=== PATIENT | female | born 1990 | race Caucasian/White ===

== ENCOUNTER 2016-10-23 14:23 | Emergency (ER) ==
[2016-10-23 14:28] VITALS: BP 113/77; TEMP 98.8; BMI 30.2
[2016-10-23] MEDS ORDERED: BOOSTRIX IM ONE (14:37)
--- NOTE | 2016-10-23 14:48 | ED.PDOC ---
General ED Provider: Dr. CELESTINE ANDERSON JR Chief Complaint: Hand Laceration Stated Complaint: WASHING DISHES AND CUT RIGHT LATERAL HAND ON A BROKEN GLASS. [ End ]98.8 79 20 98% 113/77 Time Seen by Physician: 14:36 Mode of Arrival: Walk-In Information Source: Patient Exam Limitations: No limitations Nursing and Triage Documentation Reviewed and Agree: No Review of Systems - Review Of Systems Constitutional: Reports: No symptoms Eyes: Reports: No symptoms Ears, Nose, Mouth, Throat: Reports: No symptoms Respiratory: Reports: No symptoms Cardiac: Reports: No symptoms GI: Reports: No symptoms : Reports: No symptoms Musculoskeletal: Reports: No symptoms Skin: Reports: Lesions Neurological: Reports: No symptoms Endocrine: Reports: No symptoms Hematologic/Lymphatic: Reports: No symptoms All Other Systems: Other Past Medical History - Past Medical History Previously Healthy: Yes Endocrine: Reports: None Cardiovascular: Reports: None Respiratory: Reports: None Hematological: Reports: None Gastrointestinal: Reports: None Genitourinary: Reports: None Neuro/Psych: Reports: None Musculoskeletal: Reports: None Cancer: Reports: None Last Menstrual Period: 10/15/16 - Surgical History General Surgical History: Reports: Cholecystectomy - Family History Family History: Reports: None - Social History Smoking Status: Current every day smoker Hx Substance Use: No Alcohol Screening: None - Immunizations Tetanus Shot up to Date: No Physical Exam - Physical Exam Appearance: Well-appearing Psychiatric: Affect appropriate Procedures - Laceration/Wound Repair No standard instances Wound Description: Other Wound Length (cm): 0.5 Wound Width: 0.r Wound Explored: Clean Wound Irrigated: Yes Wound Prep: Hibiclens Wound Repaired With: Dermabond Critical Care Note - Critical Care Note Total Time (mins): 0 Course - Course Vital Signs: Temp Pulse Resp BP Pulse Ox 10/23/16 14:23 98.8 F 79 20 113/77 98 Departure - Departure Time of Disposition: 14:48 Disposition: HOME SELF-CARE Discharge Problem: Laceration of hand Instructions: Skin Adhesive Care (ED) Condition: Good Pt referred to PMD for follow-up: Yes Additional Instructions: return or to PMD if red swollen tender draining signs of infection avoid trauma to skin adhesive Allergies/Adverse Reactions: Allergies No Known Allergies Allergy (Verified 10/23/16 14:31) Home Medications: Ambulatory Orders Etonogestrel [Nexplanon] 68 mg SQ DIRECTED 07/29/15
== END 2016-10-23 14:53 | disposition home or self-care (01) ==
LOC: ED 14:23
DX: S61.411A Laceration without foreign body of right hand, initial encounter (principal); W25.XXXA Contact with sharp glass, initial encounter; Y93.G1 Activity, food preparation and clean up
CPT/HCPCS: 90471; 99283

== ENCOUNTER 2016-12-01 16:37 | Emergency (ER) ==
[2016-12-01 16:41] VITALS: BP 139/99; TEMP 98.8; BMI 31.9
--- NOTE | 2016-12-01 17:13 | ED.PDOC ---
General ED Provider: Dr. CELESTINE ANDERSON JR Chief Complaint: Toe Pain/Injury Stated Complaint: patient states she was trying to move a desk and it landed on left great toe. [ End ]1 hour. gallbladder 10/2013. patient states she was trying to move a desk and it fell on proximal area of left great toe. [ End ] Time Seen by Physician: 17:11 Mode of Arrival: Walk-In Information Source: Patient Exam Limitations: No limitations Primary Care Provider: BRENT ALVES Nursing and Triage Documentation Reviewed and Agree: No Review of Systems - Review Of Systems Constitutional: Reports: No symptoms Eyes: Reports: No symptoms Ears, Nose, Mouth, Throat: Reports: No symptoms Respiratory: Reports: No symptoms Cardiac: Reports: No symptoms GI: Reports: No symptoms : Reports: No symptoms Musculoskeletal: Reports: Joint pain (left first mcp metacarpal slightly tender prox phalanx very tender) Skin: Reports: Bruising Neurological: Reports: No symptoms Endocrine: Reports: No symptoms Hematologic/Lymphatic: Reports: No symptoms All Other Systems: Other Past Medical History - Past Medical History Previously Healthy: Yes Endocrine: Reports: None Cardiovascular: Reports: None Respiratory: Reports: None Hematological: Reports: None Gastrointestinal: Reports: None Genitourinary: Reports: None Neuro/Psych: Reports: None Musculoskeletal: Reports: None Cancer: Reports: None Last Menstrual Period: 2 weeks ago - Surgical History General Surgical History: Reports: Cholecystectomy - Family History Family History: Reports: None - Social History Smoking Status: Current every day smoker Hx Substance Use: No Alcohol Screening: None Physical Exam - Physical Exam Appearance: Well-appearing, Thin Pain Distress: Moderate Neck: Supple Respiratory: Airway patent Musculoskeletal: Normal strength, Edema (left great toe mild) Critical Care Note - Critical Care Note Total Time (mins): 0 Course - Course Orders, Labs, Meds: Orders Category Date Time Status TOE(S), LEFT MIN 2V Stat RADS 12/01/16 17:13 Taken Vital Signs: Temp Pulse Resp BP Pulse Ox 12/01/16 16:39 98.8 F 93 H 14 139/99 H 98 Departure - Departure Time of Disposition: 17:47 Disposition: HOME SELF-CARE Discharge Problem: Injury of toe Contusion Qualifiers: Encounter type: initial encounter Contusion area: toe Toe: great toe Damage to nail status: without damage Laterality: left Qualifier Code: (S90.112A) Contusion of left great toe without damage to nail, initial encounter Instructions: Foot Contusion (ED) Condition: Good Pt referred to PMD for follow-up: Yes Additional Instructions: ice 20 minutes three times a day elevate foot for two hours twice a day Tylenol for pain not controlled with ice may use [place] if needed radiologist will read films before noon tomorrow recheck PMD one week if still painful sooner if fracture found Allergies/Adverse Reactions: Allergies No Known Allergies Allergy (Verified 12/01/16 16:41) Home Medications: Ambulatory Orders Etonogestrel [Nexplanon] 68 mg SQ DIRECTED 07/29/15
--- NOTE | 2016-12-02 07:17 | DI ---
EXAM: Radiographs, left first toe HISTORY: Left first toe pain. COMPARISON: None available. TECHNIQUE: Three views. FINDINGS: Bone mineralization is normal. There is no fracture or dislocation. The joint spaces ar e maintained. No focal soft tissue abnormality is seen. IMPRESSION: No fracture or dislocation.
== END 2016-12-01 18:31 | disposition home or self-care (01) ==
LOC: ED 16:37
DX: S90.112A Contusion of left great toe without damage to nail, initial encounter (principal); W20.8XXA Other cause of strike by thrown, projected or falling object, initial encounter; F17.210 Nicotine dependence, cigarettes, uncomplicated
CPT/HCPCS: 99283

== ENCOUNTER 2016-12-07 08:39 | Outpatient (CLI) ==
[2016-12-07 08:56] LABS: BASOPHILS % (AUTO) 0.7 % (0.0-3.0); EOSINOPHILS # (AUTO) 0.2 K/ul (0.0-0.7); EOSINOPHILS % (AUTO) 2.8 % (0.0-7.0); HEMATOCRIT 41.6 % (37.0-47.0); IMMATURE GRANULOCYTE % (AUTO) 0.5 % (0.0-5.0); LYMPHOCYTES # (AUTO) 1.7 K/uL (0.60-3.4); LYMPHOCYTES % (AUTO) 30.2 (10.0-50.0); MEAN CORPUSCULAR HEMOGLOBIN 29.2 pg (27.0-31.0); MEAN CORPUSCULAR HGB CONC 33.7 (31.8-35.4); MEAN CORPUSCULAR VOLUME 86.8 fl (81.0-99.0); MONOCYTES # (AUTO) 0.3 K/uL (0.4-2.0); NEUTROPHILS # (AUTO) 3.4 K/ul (2.0-6.9); NEUTROPHILS % (AUTO) 59.8; PLATELET COUNT 258 10^3/uL (140-440); RED BLOOD COUNT 4.79 10^6/ul (4.20-5.40); WHITE BLOOD COUNT 5.66 K/ul (4.6-10.2)
[2016-12-07 09:42] LABS: ALBUMIN 3.9 g/dL (3.4-5.0); ALBUMIN/GLOBULIN RATIO 1.18; ANION GAP 12.8; BILIRUBIN,TOTAL 0.6 mg/dL (0.00-1.20); BUN/CREATININE RATIO 8.33; CALCIUM 9.4 mg/dL (8.2-10.2); CHOL/HDL RATIO 3.7 (4.5-5.5); CREATININE 0.72 mg/dL (0.60-1.30); POTASSIUM 3.8 mmol/L (3.5-5.10); TOTAL PROTEIN 7.2 g/dL (6.4-8.2)
== END 2016-12-07 08:40 | disposition home or self-care (01) ==
LOC: LAB 08:39
PROVIDERS: ATTEND Nurse Practitioner Family
DX: F41.9 Anxiety disorder, unspecified (principal); E66.9 Obesity, unspecified; F32.9 Major depressive disorder, single episode, unspecified
CPT/HCPCS: 36415; 80053; 80061; 84439; 84443; 85025

== ENCOUNTER 2017-11-17 14:46 | Outpatient (CLI) | END 2017-11-17 14:47 | disposition home or self-care (01) | LOC: RHC-LAB 14:46 | PROVIDERS: ATTEND Nurse Practitioner Family | DX: R05 Cough (principal) | CPT/HCPCS: 87804 ==

== ENCOUNTER 2018-03-12 09:52 | Outpatient (CLI) | END 2018-03-12 09:53 | disposition home or self-care (01) | LOC: LAB 09:52 | PROVIDERS: ATTEND Nurse Practitioner Family | DX: F41.8 Other specified anxiety disorders (principal) | CPT/HCPCS: 36415; 80053; 80061; 84443; 85025 ==

== ENCOUNTER 2018-04-09 08:00 | Outpatient (RCR) ==
--- NOTE | 2018-03-26 10:54 | RS.OPPTEV2 ---
Date of Note: 03/26/18 Visit #: 1 Date of Evaluation: 03/26/18 Payer Source: Insurance Treatment Diagnosis: Left shoulder pain History of Condition/Mechanism of Injury:: Patient reports left shoulder pain began approximately two months ago. States she has not had an injury to the shoulder. States she was standing at a table at work and just felt sharp pain in the shoulder. Current Subjective/complaints:: [place] reports left shoulder pain. States pain is mainly with raising the left arm, especially up to or beyond shoulder height. 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 States her shoulder pain increases the more she tries to use it. She is unable to sleep on the left shoulder. She denies tingling or numbness in the left UE. Does report some discomfort into the left side of the neck. Reports she has difficulty fixing her hair or any other activity that requires her to hold her arm up at or beyond shoulder height. States she can no longer braid her hair. When pain is really bad, it hurts to turn the steering wheel when driving. Reports having popping at times in the shoulder. States when she gets a major pop, it feels like lava goes through the shoulder joint. She has had no Xrays or MRI at this time. She has also not received an injection. Treatment Side (optional): Left Medical History Surgical History: Cholecystectomy Smoking Status: Current every day smoker Hx Home Medications: Paroxetine Patient's Goals: Her goal is to get relief of left shoulder pain. Pain Assessment - Pain Description Pain Location: left shoulder joint Current Pain Intensity: 1/10 Worst Pain Intensity: 9/10 Functional Outcome Measure UE Functional Index: 66 (66/80= 17.5% impaired) - G Codes & Severity Modifier G Codes & Modifier: NA Source of G Code score: NA Observation - Observation Posture: Forward Head, Rounded Shoulders Handedness: Right Shoulder ROM: Right WFL's Shoulder Muscle Strength: Right WFL's - Left Shoulder ROM Left Shoulder Flexion: 95 (degrees AROM) Left Shoulder Abduction: 78 (degrees AROM) Left Shoulder Internal Rotation: 70 (degrees AROM) Left Shoulder External Rotation: 75 (degrees AROM) Left Shoulder ROM Limitations: Pain Comments: passive left shoulder ROM: flexion 105 degrees, abduction 100 degrees , ER and IR WFL's. All directions limited by pain. - Left Shoulder Strength Left Shoulder Flexion: 4 Good Left Shoulder Extension: 4+ Good + Left Shoulder Abduction: 4 Good Left Shoulder Adduction: 4+ Good + Left Shoulder External Rotation: 4 Good Left Shoulder Internal Rotation: 3+ Fair+ Comments: Pain with resisted left shoulder flexion, abduction, and IR - Special Tests Shoulder Empty Can (Supraspinatus) Test: Positive Left Shoulder Speed's Sign Test: Negative Left Shoulder Drop Arm Test: Negative Left Shoulder Lovell-Magdaleno Impingement Test: Positive Left Comments: Lift off test for Subscapularis-- Positive left shoulder Rn Orthopedic Strength Left Hand Rn Orthopedic Strength: 20 lbs. Right Hand Rn Orthopedic Strength: 68 lbs. Dynamometer Testing Position: 2nd Position Palpation Comments:: Patient reports tenderness with palpation over the insertion site of the supraspinatus, infraspinatus, and teres minor tendons. Reports no tenderness during palpation over the anterior aspect of the GH joint, including the long head of the biceps tendon. Sensation - Sensation Right Upper Extremity: Intact/Normal Left Upper Extremity: Intact/Normal - Treatment Modality: Ultrasound Parameters/Method Applied: 1.4 w/cm2 continuous X 9 mins over the left GH joint , with focus on the lateral and posterior aspect of the joint. Patient Position: Sitting Interventions - Exercise/Activities/Manual Therapy Exercises/Activities: Patient instructed in pendulum ex's, RTC series, and scapular retraction. Reinforced to perform RTC series in the pendulum position and only in a pain-free range. Also instructed to ice the left shoulder for pain management and especially after work to decrease inflammation. Manual Therapy: na HOME EXERCISE PROGRAM: pendulum ex's, RTC series, and scapular retraction. - Charges Timed Code Treatment Minutes: 9 mins Total Treatment Time: 48 mins Procedures billed for this date of service:: TONY V[place], US EVALUATION COMPLEXITY LEVEL EVALUATION COMPLEXITY LEVEL: HISTORY: Low, EXAM OF BODY SYSTEMS: Low, CLINICAL PRESENTATION: Low, CLINICAL DECISION MAKING: Low Assessment Assessment: Patient presents to therapy with a diagnosis of left shoulder tendonitis. She presents with left shoulder passive and active ROM limited by pain. She exhibits positive Impingement, Empty Can, and Lift off test. She exhibits tendonitis of supraspinatus, infraspinatus, subscapularis, and probable subacromial bursitis. She shows potential to benefit from modalities to reduce inflammation and exercises to regain functional, pain-free left shoulder ROM. Patient Education: Education of diagnosis, Body/Joint mechanics, Home Exercise Program, Home Safety, Activity Modification, Education of Plan of Care Rehab Potential: Good Short Term Goals Goal #1: Pt independent and compliant in HEP. Goal to be met by: 04/05/18 Goal #2: Left shoulder PROM WFL's with minimal pain. Goal to be met by: 04/09/18 Goal #3: Tenderness at left shoulder joint decreased to minimal. Goal to be met by: 04/09/18 Long-Term Goals Goal #1: Pt knows HEP and to continue ex's to maintain functional level at D/C. Goal to be met by: 04/30/18 Goal #2: Score on UE function index improved to 76/80.. Goal to be met by: 04/30/18 Goal #3: Pt to use LUE for daily work and home activities without pain. Goal to be met by: 04/30/18 Goal #4: Pt to demonstrate good postural awareness. Goal to be met by: 04/30/18 Plan - Treatment to be Provided Procedures: Therapeutic Exercises, Therapeutic Activity, Manual Therapy, Patient Education Modalities: Electrical Stimulation, Ultrasound/Phonophoresis, Class IV Laser, Cryotherapy, Hot Packs - Treatment Plan Frequency: 3 X week Duration: 3 weeks ORDER # VISITS AND/OR THROUGH DATE: 04/30/18 - Treatment Code (1) Shoulder pain Code(s): M25.519 - PAIN IN UNSPECIFIED SHOULDER Qualifiers: Chronicity: acute Laterality: left Qualified Code(s): M25.512 - Pain in left shoulder (2) Shoulder stiffness Qualifiers: Laterality: left Qualified Code(s): M25.612 - Stiffness of left shoulder, not elsewhere classified (3) Shoulder tendonitis Qualifiers: Laterality: left Qualified Code(s): M75.82 - Other shoulder lesions, left shoulder
--- NOTE | 2018-03-28 09:07 | RS.OPPTDN ---
Subjective Date of Note: 03/28/18 Visit #: 2 Date of Evaluation: 03/26/18 Payer Source: Insurance Treatment Diagnosis: Left shoulder pain Current Subjective/complaints:: Reports the L shoulder is hurting at rest this morning. Pain Assessment - Pain Description Pain Location: L shoulder Pain Description: Dull, Aching Current Pain Intensity: 4/10 - Treatment Modality: Ultrasound Parameters/Method Applied: 10 mins. @ 1.5 w/cm2 ,continuous mode to L shoulder. Patient Position: Sitting - Heat/Cryotherapy Treatment: Hot Pack (20 mins. prior to US) Interventions - Exercise/Activities/Manual Therapy Exercises/Activities: Exercise attempted initially in supine ,but poor tolerance due to pain .Patient does pendulum exercises and RTC series in short ROM. Total minutes of Exercise: 10 Manual Therapy: na Total minutes of Manual Therapy: 0 HOME EXERCISE PROGRAM: pendulum ex's, RTC series, and scapular retraction. - Charges Timed Code Treatment Minutes: 20 Total Treatment Time: 40 Procedures billed for this date of service:: hp,US,ex 1 Assessment: Patient has increased sharp pain with attempting active motion ,but has fair tolerance to pendulum exercises today.She c/o numbness and tingling into the L UE while doing pendulum.She understands to do her exercises in a pain free ROM,and to ice after work or activities that elevate her pain.She is attentive to recommendations. Patient Education: Body/Joint mechanics, Home Exercise Program, Activity Modification, Education of Plan of Care Short Term Goals Goal #1: Pt independent and compliant in HEP. Goal to be met by: 04/05/18 Progress towards Goal:: Progressing Goal #2: Left shoulder PROM WFL's with minimal pain. Goal to be met by: 04/09/18 Goal #3: Tenderness at left shoulder joint decreased to minimal. Goal to be met by: 04/09/18 Dining Services Manager Goals Goal #1: Pt knows HEP and to continue ex's to maintain functional level at D/C. Goal to be met by: 04/30/18 Goal #2: Score on UE function index improved to 76/80.. Goal to be met by: 04/30/18 Goal #3: Pt to use LUE for daily work and home activities without pain. Goal to be met by: 04/30/18 Goal #4: Pt to demonstrate good postural awareness. Goal to be met by: 04/30/18 Plan PLAN OF CARE EXPIRES ON:: 04/30/18 ORDER # VISITS AND/OR THROUGH DATE: 04/30/18 PLAN: Continue PT to reduce/eliminate L shoulder pain , then increase her ROM to safely do ADL's. Comments:: We discussed utilizing manual therapy ,possibly next session to help reduce her pain.
--- NOTE | 2018-03-30 09:20 | RS.OPPTDN ---
Subjective Date of Note: 03/30/18 Visit #: 3 Date of Evaluation: 03/26/18 Payer Source: Insurance Treatment Diagnosis: Left shoulder pain Current Subjective/complaints:: Partient reports thge L shoulder "pops" alot at work,also feels lke it "catches " at times. Pain Assessment - Pain Description Pain Location: L shoulder Pain Description: Sharp, Dull, Aching Current Pain Intensity: 2 - Treatment Modality: Ultrasound Parameters/Method Applied: 10 mins. @ 1.5 w/cm2 ,continuous mode to L shoulder. - Heat/Cryotherapy Treatment: Hot Pack (20 mins. prior to US) Interventions - Exercise/Activities/Manual Therapy Exercises/Activities: HEP review only today while receiving manual therapy. Total minutes of Exercise: 0 Manual Therapy: 20 mins. manual therapy to L shoulder and upper traps muscle belly. Total minutes of Manual Therapy: 20 HOME EXERCISE PROGRAM: pendulum ex's, RTC series, and scapular retraction. - Charges Timed Code Treatment Minutes: 30 Total Treatment Time: 50 Procedures billed for this date of service:: hp,US,manual therapy Assessment: Patient reports feeling looser after manual therapy.She is hypersensitive to the RTC tendons insertion site,but less tender in the upper traps today.She undersatnds to continue the HEP in pain free ROM. Patient Education: Education of diagnosis, Body/Joint mechanics, Home Exercise Program, Home Safety, Activity Modification, Education of Plan of Care Patient demonstrates compliance with HEP?: Yes Short Term Goals Goal #1: Pt independent and compliant in HEP. Goal to be met by: 04/05/18 Progress towards Goal:: Progressing Goal #2: Left shoulder PROM WFL's with minimal pain. Goal to be met by: 04/09/18 (N/A today,focused on pain control) Goal #3: Tenderness at left shoulder joint decreased to minimal. Goal to be met by: 04/09/18 Progress towards Goal:: Progressing Usp Goals Goal #1: Pt knows HEP and to continue ex's to maintain functional level at D/C. Goal to be met by: 04/30/18 Progress towards goal: Progressing Goal #2: Score on UE function index improved to 76/80.. Goal to be met by: 04/30/18 Goal #3: Pt to use LUE for daily work and home activities without pain. Goal to be met by: 04/30/18 Goal #4: Pt to demonstrate good postural awareness. Goal to be met by: 04/30/18 Plan PLAN OF CARE EXPIRES ON:: 04/30/18 ORDER # VISITS AND/OR THROUGH DATE: 04/30/18 PLAN: Continue PT to reduce /eliminate L shoulder pain ,increase ROM.
--- NOTE | 2018-04-02 09:21 | RS.OPPTDN ---
Subjective Date of Note: 04/02/18 Visit #: 4 Date of Evaluation: 03/26/18 Payer Source: Insurance Treatment Diagnosis: Left shoulder pain Current Subjective/complaints:: Patioent reports the L shoulder feels better today. Pain Assessment - Pain Description Pain Location: L shoulder Pain Description: Dull, Aching Current Pain Intensity: 1/10 Other Comments regarding Pain:: 310 after exercises today - Heat/Cryotherapy Treatment: Hot Pack (20 mins. prior to exercises) Interventions - Exercise/Activities/Manual Therapy Exercises/Activities: 20 mins. supine exercises ,3/10 wand exerciss for chest press,overhead flexion ,isometrics for IR,ER,abduction.Scapular protraction / retraction x 15 each. Ended with gentle passive shoulder flexion,scaption ,IR and ER. Total minutes of Exercise: 20 Manual Therapy: 20 mins. manual therapy to L shoulder and upper traps muscle belly. Total minutes of Manual Therapy: 20 HOME EXERCISE PROGRAM: pendulum ex's, RTC series, and scapular retraction. - Charges Timed Code Treatment Minutes: 40 Total Treatment Time: 60 Procedures billed for this date of service:: hp,ex ,manual Assessment: Patient reports the L shoulder pain duration is lessening ,still varies with the amount of activities at work ,or what position the L UE is placed to do certain tasks.She reports maintaining certain positions ,such as trying to braid her hair are still difficult. Patient Education: Education of diagnosis, Body/Joint mechanics, Home Exercise Program, Home Safety, Activity Modification, Education of Plan of Care Patient demonstrates compliance with HEP?: Yes Short Term Goals Goal #1: Pt independent and compliant in HEP. Goal to be met by: 04/05/18 Progress towards Goal:: Progressing Goal #2: Left shoulder PROM WFL's with minimal pain. Goal to be met by: 04/09/18 (N/A today,focused on pain control) Progress towards Goal:: Progressing Goal #3: Tenderness at left shoulder joint decreased to minimal. Goal to be met by: 04/09/18 Progress towards Goal:: Progressing Transition Rn Goals Goal #1: Pt knows HEP and to continue ex's to maintain functional level at D/C. Goal to be met by: 04/30/18 Progress towards goal: Progressing Goal #2: Score on UE function index improved to 76/80.. Goal to be met by: 04/30/18 Goal #3: Pt to use LUE for daily work and home activities without pain. Goal to be met by: 04/30/18 Goal #4: Pt to demonstrate good postural awareness. Goal to be met by: 04/30/18 Progress towards goal: Progressing Plan PLAN OF CARE EXPIRES ON:: 04/30/18 ORDER # VISITS AND/OR THROUGH DATE: 04/30/18 PLAN: Continue PT to eliminate L shoulder pain ,increase motion .
--- NOTE | 2018-04-04 08:11 | RS.CXNS ---
Date of scheduled appointment: 04/04/18 Type: Cancel Reason for Cancel/NS: Unknown ,but patient did leave a message stating she cannot keep appt.Next appt. is Monday,04-06-18.
--- NOTE | 2018-04-06 08:57 | RS.OPPTDN ---
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 Pain Assessment - Pain Description Pain Location: L shoulder Pain Description: Dull, Aching Current Pain Intensity: 6 - Treatment Modality: Ultrasound Parameters/Method Applied: 8 mins. @ 1.0 w/cm2 to L shoulder,pulsed mode. Patient Position: Sitting - Heat/Cryotherapy Treatment: Hot Pack (20 mins.heat prior to US,10 mins. cold after), Cryotherapy Interventions - Exercise/Activities/Manual Therapy Exercises/Activities: No exercise due to tenderness to palpate ,abbrevaited US session also due to pain. Total minutes of Exercise: 0 Manual Therapy: N/A Total minutes of Manual Therapy: 0 HOME EXERCISE PROGRAM: pendulum ex's, RTC series, and scapular retraction. - Charges Timed Code Treatment Minutes: 8 Total Treatment Time: 38 Procedures billed for this date of service:: hp,US,cp Assessment: Abbreviated session today,is very tender to palpate today ,poor tolerance to the US ,even in pulsed mode.She is motivated to improve ,uses heat and cold at home for pain control.Her work tasks vary,andthe repetitive use of the L shoulder last night has irritated the L shoulder today.She has good awareness of her posture ,is compliant to HEP. Patient Education: Body/Joint mechanics, Activity Modification, Education of Plan of Care Patient demonstrates compliance with HEP?: Yes Short Term Goals Goal #1: Pt independent and compliant in HEP. Goal to be met by: 04/05/18 Progress towards Goal:: Progressing Goal #2: Left shoulder PROM WFL's with minimal pain. Goal to be met by: 04/09/18 (elevated pain today) Progress towards Goal:: Regressing Goal #3: Tenderness at left shoulder joint decreased to minimal. Goal to be met by: 04/09/18 Progress towards Goal:: Regressing Comments:: Poor tolerance to US or palpation today. Environmental Management Specialist Goals Goal #1: Pt knows HEP and to continue ex's to maintain functional level at D/C. Goal to be met by: 04/30/18 Progress towards goal: Progressing Goal #2: Score on UE function index improved to 76/80.. Goal to be met by: 04/30/18 Goal #3: Pt to use LUE for daily work and home activities without pain. Goal to be met by: 04/30/18 Goal #4: Pt to demonstrate good postural awareness. Goal to be met by: 04/30/18 Progress towards goal: Met Plan PLAN OF CARE EXPIRES ON:: 04/06/18 ORDER # VISITS AND/OR THROUGH DATE: 04/30/18 PLAN: Continue PT to reduce/eliminate L shoulder pain.
--- NOTE | 2018-04-09 09:02 | RS.OPPTDN ---
Subjective Date of Note: 04/09/18 Visit #: 6 Date of Evaluation: 03/26/18 Payer Source: Insurance Treatment Diagnosis: Left shoulder pain Current Subjective/complaints:: Reports her work over the weekend did not involve using the L UE as much ,her pain and tenderness is less today. Pain Assessment - Pain Description Pain Location: L shoulder Pain Description: Dull, Aching Current Pain Intensity: 1 Other Comments regarding Pain:: 3/10 after US and exercises - Treatment Modality: Ultrasound Parameters/Method Applied: 10 mins. @ 1.0 w/cm2,pulsed mode ,50% initially , reduced to 20% ,then 10% due to pain. Patient Position: Sitting - Heat/Cryotherapy Treatment: Hot Pack (20 mins. prior to US) Interventions - Exercise/Activities/Manual Therapy Exercises/Activities: 10 mins. yellow t-band exercises ,3/10 for scapular retractionn ,then 3/10 biceps curls. Total minutes of Exercise: 10 Manual Therapy: N/A Total minutes of Manual Therapy: 0 HOME EXERCISE PROGRAM: pendulum ex's, RTC series, and scapular retraction. - Charges Timed Code Treatment Minutes: 20 Total Treatment Time: 40 Procedures billed for this date of service:: hp,US,ex 1 Assessment: Patient tender to palpate ,alng with pain from US along the biceps tendon area today.She plans to use ice at home for pain control.he is attentive and motivated to improve.We discussed the POC for next session ,plan to use more cold,as opposed to the US ,as it irritated the L shoulder today. Patient Education: Education of diagnosis, Body/Joint mechanics, Home Exercise Program, Home Safety, Activity Modification, Education of Plan of Care Patient demonstrates compliance with HEP?: Yes Short Term Goals Goal #1: Pt independent and compliant in HEP. Goal to be met by: 04/05/18 Progress towards Goal:: Partially Met Goal #2: Left shoulder PROM WFL's with minimal pain. Goal to be met by: 04/09/18 Progress towards Goal:: No Change Goal #3: Tenderness at left shoulder joint decreased to minimal. Goal to be met by: 04/09/18 Progress towards Goal:: No Change Longterm Goals Goal #1: Pt knows HEP and to continue ex's to maintain functional level at D/C. Goal to be met by: 04/30/18 Progress towards goal: Progressing Goal #2: Score on UE function index improved to 76/80.. Goal to be met by: 04/30/18 Goal #3: Pt to use LUE for daily work and home activities without pain. Goal to be met by: 04/30/18 Progress towards goal: Progressing Goal #4: Pt to demonstrate good postural awareness. Goal to be met by: 04/30/18 Progress towards goal: Met Plan PLAN OF CARE EXPIRES ON:: 04/30/18 ORDER # VISITS AND/OR THROUGH DATE: 04/30/18 PLAN: Continue PT to eliminate L shoulder pain ,return to PLOF.
== END 2018-04-10 23:59 ==
PROVIDERS: ATTEND Nurse Practitioner Family
DX: M75.82 Other shoulder lesions, left shoulder (principal); M25.512 Pain in left shoulder; M25.612 Stiffness of left shoulder, not elsewhere classified

== ENCOUNTER 2018-04-13 08:00 | Outpatient (RCR) ==
--- NOTE | 2018-04-12 09:09 | RS.OPPTDN ---
Subjective Date of Note: 04/12/18 Visit #: 7 Date of Evaluation: 03/26/18 Payer Source: Insurance Treatment Diagnosis: Left shoulder pain Current Subjective/complaints:: Patient reprts tightness today in the L shopulder ,but les intense pain ,described as a dull ache. Pain Assessment - Pain Description Pain Location: L shoulder Pain Description: Dull, Aching Current Pain Intensity: 0 at rest Other Comments regarding Pain:: 09/20 after exercises today - Heat/Cryotherapy Treatment: Hot Pack (20 mins. prior to exercises) Interventions - Exercise/Activities/Manual Therapy Exercises/Activities: 20 mins. ,beginning in supine with 3/15 reps.each chest press ,then overhead flexion ,1.5 dumbbell in L hand of same motions.Scaption x 15 reps.AAROM for internal rotation /external rotation.HEP review.Standing motion of reaching to back of her head ,then behind her back to assess pain. Total minutes of Exercise: 20 Manual Therapy: N/A HOME EXERCISE PROGRAM: pendulum ex's, RTC series, and scapular retraction. - Charges Timed Code Treatment Minutes: 20 Total Treatment Time: 40 Procedures billed for this date of service:: hp,ex 1 Assessment: Patient reports more tightness today as oppposed to pain ,but she does have one brief moment of sharp pain with passive external rotation when the UE is abducted to approx 80 degrees.She reports fatigue and dull ache in the anterior deltoid area after exercises. Patient Education: Education of diagnosis, Body/Joint mechanics, Home Exercise Program, Home Safety, Activity Modification, Education of Plan of Care Patient demonstrates compliance with HEP?: Yes Short Term Goals Goal #1: Pt independent and compliant in HEP. Goal to be met by: 04/05/18 Progress towards Goal:: Partially Met Goal #2: Left shoulder PROM WFL's with minimal pain. Goal to be met by: 04/09/18 Progress towards Goal:: Progressing Goal #3: Tenderness at left shoulder joint decreased to minimal. 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 Goal to be met by: 04/30/18 Progress towards goal: Partially Met Goal #2: Score on UE function index improved to 76/80.. Goal to be met by: 04/30/18 Goal #3: Pt to use LUE for daily work and home activities without pain. Goal to be met by: 04/30/18 Progress towards goal: Progressing Goal #4: Pt to demonstrate good postural awareness. Goal to be met by: 04/30/18 Progress towards goal: Met Plan PLAN OF CARE EXPIRES ON:: 04/30/18 ORDER # VISITS AND/OR THROUGH DATE: 04/30/18 PLAN: Continue PT to eliminate shoulder pain ,strengthen for joint stability.
--- NOTE | 2018-04-13 09:03 | RS.OPPTDC ---
Date of Discharge: 04/13/18 Date of Evaluation: 03/26/18 Number of Visits: 8 Treatment Diagnosis: Left shoulder pain Current Level of Function: Independent with ADL's ,but L shoulder pain varies with amount of activity.Her job requires repetitive use of the UE's. Current Complaints/Gains: Patient reports temporary relief ,is comfortable with D/C plan today,as she has good understanding of HEP and pain management . Pain Assessment - Pain Description Pain Location: L shoulder. Pain Description: Dull, Acute Current Pain Intensity: 2 Functional Outcome Measure UE Functional Index: 67 - G Codes & Severity Modifier G Codes & Modifier: na Source of G Code score: na Observation - Observation Posture: Forward Head, Rounded Shoulders Gait - Gait Pattern General Gait Pattern Observation: No Deviations/Normal General Range of Motion: WFL Muscle Strength: 4+ to 5_/5,except rotation is 3+ to 4-/5 - Heat/Cryotherapy Treatment: Hot Pack (20 mins. prior to manual therapy) Interventions - Exercise/Activities/Manual Therapy Exercises/Activities: HEP review only . Total minutes of Exercise: 0 Manual Therapy: N/A Total minutes of Manual Therapy: 25 HOME EXERCISE PROGRAM: pendulum ex's, RTC series, and scapular retraction. - Objective Findings Observations,measurements,etc.: ROM is WFL all directions ,but rotation elicits pain - Charges Timed Code Treatment Minutes: 25 Total Treatment Time: 45 Procedures billed for this date of service:: hp,manual 2 Assessment Assessment: Patient has met rehab potentil,her progress varies ,dependent upon amount of activity at work.She only has one point improvement on UE scale.She has good knowledge of HEP and pain control. Patient Education: Education of Plan of Care Rehab Potential: Good Short Term Goals Goal #1: Pt independent and compliant in HEP. Goal to be met by: 04/05/18 Progress towards Goal:: Met Goal #2: Left shoulder PROM WFL's with minimal pain. Goal to be met by: 04/09/18 Progress towards Goal:: Partially Met Goal #3: Tenderness at left shoulder joint decreased to minimal. Goal to be met by: 04/09/18 Progress towards Goal:: No Change [facility] Goals Goal #1: Pt knows HEP and to continue ex's to maintain functional level at D/C. Goal to be met by: 04/30/18 Progress towards goal: Met Goal #2: Score on UE function index improved to 76/80.. Goal to be met by: 04/30/18 Goal #3: Pt to use LUE for daily work and home activities without pain. Goal to be met by: 04/30/18 (varies) Progress towards goal: No Change Goal #4: Pt to demonstrate good postural awareness. Goal to be met by: 04/30/18 Progress towards goal: Met
== END 2018-05-11 23:59 ==
PROVIDERS: ATTEND Nurse Practitioner Family
DX: M75.82 Other shoulder lesions, left shoulder (principal); M25.512 Pain in left shoulder; M25.612 Stiffness of left shoulder, not elsewhere classified

== ENCOUNTER 2018-12-28 08:34 | Outpatient (CLI) | END 2018-12-28 08:35 | disposition home or self-care (01) | LOC: RHC-LAB 08:34 | PROVIDERS: ATTEND Nurse Practitioner Family | DX: Z79.899 Other long term (current) drug therapy (principal) | CPT/HCPCS: 36415; 80053; 85025 ==